=== PATIENT | female | born 1965 | race Caucasian/White ===

== ENCOUNTER 2017-05-05 06:12 | Day surgery (SDC) | payer BC ==
[2017-05-05] MEDS ORDERED: Sodium Chloride 0.9% 10 ML FLUSH Syringe PORT FLUSH PRN (06:20)
[2017-05-05] MEDS ORDERED: Lactated Ringers 1,000 ML IV SCH (06:30)
[2017-05-05 08:34] VITALS: BP 116/72; PULSE 77; O2SAT 96
[2017-05-05] MEDS ORDERED: Versed 2 MG/2 ML Injection IV ONE (10:00)
[2017-05-05] MEDS ORDERED: DIPRIVAN 200 MG/20 ML IV ONE (10:00)
--- NOTE | 2017-05-05 12:27 | OP ---
SURGERY DATE/TIME: 05/05/2017 0658 PREOPERATIVE DIAGNOSIS: History of colon cancer resection 2009. POSTOPERATIVE DIAGNOSIS: Normal colon status post partial resection in the left colon. PROCEDURE: Colonoscopy. SURGEON: Dr. Jurado. ANESTHESIA: MAC. Medications given by anesthesia department. HISTORY: The patient is a 51 year-old white female presenting now for re-investigation status post colon cancer. The patient was reappraised of the risks of the procedure including the risk of perforation, phlebitis, untoward reaction to medication, bleeding, and missed lesions. The patient verbalized her understanding and desired to have the procedure performed. DESCRIPTION OF PROCEDURE: The patient was given the medications by the anesthesia department. She had continuous pulse oximetry, ECG monitoring, intermittent blood pressure monitoring, and tidal CO2 monitoring during the examination. She was placed in the left lateral decubitus position. A digital rectal examination was performed and revealed normal anal sphincter tone and no masses. The flexible Olympus pediatric colonoscope was used to intubate the rectum. A view of the colon was developed sequentially to the cecum where there was noted to be anastomotic site at approximately 20 cm depth insertion. There appeared to be a low lying loop. The rest of the colon was normal sequentially to the cecum. Upon insertion and withdrawal, including a retroflex view in the rectum, no mucosal lesions were otherwise encountered. The scope was removed from the patient who tolerated the procedure well and was sent back to OP recovery in good condition. The prep was noted to be fair to poor.
== END 2017-05-05 08:50 | disposition home or self-care (01) ==
LOC: SDC 06:12
PROVIDERS: ATTEND Family Medicine
PROC: 0DJD8ZZ Inspection of Lower Intestinal Tract, Via Natural or Artificial Opening Endoscopic (ICD-10-PCS; principal; 2017-05-05)
DX: Z85.038 Personal history of other malignant neoplasm of large intestine (principal); Z90.49 Acquired absence of other specified parts of digestive tract
CPT/HCPCS: 00810; J1642; J2250; J2704

== ENCOUNTER 2017-06-23 10:26 | Observation (INO) | payer BC ==
--- NOTE | 2017-06-23 08:08 | HP ---
DATE OF SURGERY: 06/23/2017 HISTORY OF PRESENT ILLNESS: The patient is a 52 year-old with ventral hernia. She has a lower midline incision for sigmoid colon resection in the past. She has a ventral hernia upper aspect. Also she had work up with CT scan that showed some cholelithiasis. I felt she would benefit repair of her symptomatic incarcerated ventral hernia with mesh as well as cholecystectomy possible open. Risks and benefits explained in detail but not limited to bleeding and infection. Risks as explained in initial report. PAST MEDICAL HISTORY: Obesity, hypertension, depression, history of colon cancer. PAST SURGICAL HISTORY: Tubal ligation, bowel resection for some colon cancer in the past, reanastomosis. She has not lost weight since then. She had endoscopy in the past. MEDICATIONS: Klor-Con, meloxicam, Furosemide, losartan, Citalopram, Lyrica and stool softener. ALLERGIES: OXYCODONE, MORPHINE, HYDROCODONE, NUBAIN. FAMILY HISTORY: Diabetes, breast cancer, colon cancer. SOCIAL HISTORY: No smoking or alcohol abuse. REVIEW OF SYSTEMS: Twelve systems reviewed. No chest pain or palpitations pertinent for being overweight and history of colon cancer in the past. Other systems negative or noncontributory as above and per preadmission questionnaire. PHYSICAL EXAMINATION: GENERAL: No acute distress. HEENT: Sclerae nonicteric. NECK: No JVD. CHEST: Equal excursion, nonlabored breathing. CVS: Regular rate and rhythm. ABDOMEN: Soft. She had upper ventral hernia at the top edge of the prior incision. Otherwise no peritoneal signs. Large upper ventral hernia. She has a little bit of splenomegaly and gallstones. She also has small cyst on an ovary. EXTREMITIES: No significant edema. NEURO: Alert, moving extremities symmetrically. No gross motor deficits noted. IMPRESSION: Symptomatic incarcerated ventral hernia. I feel the patient will benefit from repair as well as possible proceed with cholecystectomy. General risks of bleeding or infection, risk of trocar injury or hernia, small risk of bowel, bladder or blood vessel injury, small risk of bile leak, bile duct injury, retained stone or sludge possibly requiring further procedure either open or ERCP, general risk of anesthesia, deep venous thrombosis, pulmonary embolism, pneumonia, perioperative risk of aches, pains, bloating, constipation and or loose stools possibly chronic in nature. She also understands the hernia repair and possibility that she may have some scar tissue and adhesions proceeding laparoscopically and may need to proceed with open repair. She also understands general risk of aches, pains, burning or numbness possible watermelon inspector or chronic in nature, overall risk of hernia recurrence, risk of hematoma or seroma formation, risk of scar tissue, adhesions, or bowel obstruction down the road, risk if the mesh became infected likely would need to be removed, remote risk of mesh fracture or failure possibly creating issues with bowel, viscera or other structures possibly requiring other procedures, ongoing morbidity, general risk of anesthesia, deep venous thrombosis, pulmonary embolism, pneumonia, cardiopulmonary event but not limited to and also longer stay pending pain control. She also understands the importance of weight loss. She understands all the above but not limited to, will proceed with laparoscopic cholecystectomy possible open laparoscopic repair incarcerated ventral hernia with mesh possible open.
[~2017-06-23 10:26] MED LIST: BRIDION 200MG/2ML IV ONE; DIPRIVAN 200 MG/20 ML IV ONE; LIDOCAINE HCL 2% 100 MG/5 ML IJ ONE; Lactated Ringers 1,000 ML IV ONE; Quelicin Fliptop 200 MG/10 ML IJ ONE; Sensorcaine 0.25% 10 ML ONE; Zemuron 100 MG/10 ML IJ ONE; Zofran 4 MG/2 ML VIAL IV ONE
[2017-06-23] MEDS ORDERED: MEFOXIN 2 GM PREMIX** 2 GM/50 ML ML IV ONE (11:21)
[2017-06-23] MEDS ORDERED: Lactated Ringers 1,000 ML IV SCH (11:30)
[2017-06-23] MEDS ORDERED: MEFOXIN 2 GM PREMIX** 2 GM/50 ML ML IV SCH (12:00)
[2017-06-23] MEDS ORDERED: SUBLIMAZE 100 MCG/2 ML ONE (16:25)
[2017-06-23] MEDS ORDERED: Zofran 4 MG/2 ML VIAL ONE (16:36)
[2017-06-23] MEDS ORDERED: TORAdol 30 mg Injection IV PRN (17:24)
[2017-06-23] MEDS ORDERED: Zofran 4 MG/2 ML VIAL IV PRN (17:24)
[2017-06-23] MEDS ORDERED: D5W/0.45NS W/ 20mEq KCl 1000 ML 1,000 ML IV SCH (17:30)
[2017-06-23] MEDS: DILAUDID 1 MG/1ML PCA IV PRN (17:41)
[2017-06-23] MEDS ORDERED: Colace 100 MG PO ONE (22:00)
[2017-06-23] MEDS ORDERED: LASIX 80 MG PO ONE (22:00)
[2017-06-23] MEDS ORDERED: hydroDIURIL 25 MG PO ONE (22:00)
[2017-06-23] MEDS ORDERED: VOLTAREN 50 MG PO SCH (22:00)
[2017-06-23] MEDS ORDERED: Lexapro 10 MG PO ONE (22:00)
[2017-06-23] MEDS ORDERED: Cozaar 50 MG PO ONE (22:00)
[2017-06-23] MEDS: Klor Con 10 MEQ PO SCH (22:02)
[2017-06-23] MEDS: Mirapex 0.5 MG Tablet PO SCH (22:03)
[2017-06-23] MEDS: LYRICA 150MG PO SCH (22:03)
[2017-06-24 04:25] LABS: Bilirubin NEGATIVE (NEGATIVE); Blood NEGATIVE Ery/ul (0-5); COMPLETE URINE MICROSCOPIC? NO; Collection Type CLEAN CATCH; Glucose NEGATIVE (NEGATIVE); Leukocyte Esterase NEGATIVE (NEGATIVE)
[2017-06-24] MEDS ORDERED: Narcan 0.4 MG/ML IV PRN (07:12)
--- NOTE | 2017-06-24 07:57 | OP ---
SURGERY DATE/TIME: 06/23/2017 1210 PREOPERATIVE DIAGNOSES: 1) Symptomatic cholelithiasis. 2) Symptomatic incarcerated ventral incisional hernia. POSTOPERATIVE DIAGNOSES: 1) Symptomatic cholelithiasis. 2) Complex ventral incisional hernia. PROCEDURES: 1) Open repair incarcerated ventral hernia with mesh. 2) Laparoscopic cholecystectomy. SURGEON: Dr. Bryon López. MEDICAL ADMINISTRATIVE TECHNICIAN: Deana Baires, Medical Student III. ANESTHESIA: General. ESTIMATED BLOOD LOSS: Minimal. INDICATIONS: As noted above. Risks and benefits explained in detail but not limited to and consent obtained. DESCRIPTION OF PROCEDURE AND FINDINGS: The patient was taken to the OR. General anesthesia was induced. Had problems with IV initially but it improved. Abdomen was prepped and draped in the usual sterile fashion. After official time out and no disagreement with planned procedure. A transverse incision made in epigastrium. Fascia grasped and pulled upward with towel clips. Veress needle inserted and tested with saline. Pneumoperitoneum accomplished insufflating opening pressure of 0-15. A 5 mm bladeless port and camera were inserted without difficulty followed by additional 5 mm right upper quadrant port and 11 mm epigastric port as well as a 5 mm mid epigastric port. The gallbladder is grasped staying well away from the adhesions up to the ventral incisional hernia that was just inferior to this area. Gallbladder is grasped and retracted over the edge of the liver the fatty infiltrate of liver, dissection carried posterior, lateral to anterior fashion. The cystic artery isolated directly on the gallbladder wall, clipped x3 and divided in usual fashion. The cystic duct and infundibular junction slowly and carefully well skeletonized until a critical view was obtained both anteriorly and posteriorly. Once this was accomplished cystic duct was then clipped x3. Additional clip placed on the cystic duct stump in the usual fashion. The cystic duct divided. Gallbladder slowly and carefully dissected free. It was quite vascular requiring additional clipping, oozing side branch off the cystic artery as well as the LigaSure device directly on the gallbladder wall, small cystic veins and cystic artery branches staying directly on the gallbladder wall. The gallbladder was slowly and carefully dissected free retracting well away from the liver bed. Just prior to releasing from final attachments anterior liver the liver bed re-inspected. Clips noted to be in place in cystic duct and cystic stump. There was no sign of any active bleeding or bile leakage. It was felt there was no benefit from drain placement. The gallbladder released from final attachments anterior to the liver and placed in a Pleatman sac, pulled up in the epigastric wound. Decompressing some bile and a clamp used to crush up the 2.5 to 2.7 cm large stone. Clamps were used to crush it up and pulled in piecemeal finally allowing the gallbladder to be pulled free and passed off. Puncture closure device placed. #1 stay suture with closure device. Otherwise the port was left in place. At this point under direct vision of the camera the left mid, left upper quadrant, left lower quadrant ports were placed under direct vision of the camera. At this point slowly and carefully the LigaSure device, grasper and laparoscopic dilip the adhesions were taken down with some adhesions taken down with the scissors. The omental adhesions were sealed with the LigaSure device if necessary. It should be noted there is no bowel or viscera up in this area this was all omental adhesions staying directly on the gallbladder wall and incarcerated omentum was then reduced down to the hernia sac. A large broad based large hernia and a smaller one off to the right. The area of quite very weak tissue this was all taken down carefully. Good hemostasis. The omentum that had been reduced appeared to be viable at this point. At this point it was felt she would benefit from mesh repair. Because of the extensive weak tissue it was felt that this was best to re-approximate the fascia given the large length of the defect. It was felt that making counter incision directly overlying the area. As she did not have any significant umbilicus left it was felt this redundant skin in this area should be excised allowing the fascia to be closed directly therefore this was excised and passed off. The hernia sac entered. The smaller hernia off to the right abdomen as well as the main fascial defect was closed with running looped 0 PDS in sequential fashion. The mesh had been dropped back down there. Prior to doing all of this the mesh 20 x 15 oval-shaped mesh was felt the most appropriate given she had this lateral hernia off to the right. It was felt that should orient it transversely. The echo balloon mesh was then used. Stay sutures were placed in four quadrants. The mesh was dropped down into the abdomen prior to closing the fascial defect. Visceral protector was also used to keep all of this away from the fascial closure. The fascia closed with running looped 0 PDS. It was felt the bite of fascia that she had the small more attenuated fascia and hernia sac and then closed over the top again with #0 PDS in a tension free manner. Once this was accomplished two layer attenuated fascia repair had been accomplished good hemostasis noted in the subcu. At this point re-insufflated the abdomen pressure around 10 to 12 initially was irrigated out. The mesh balloon tubing was pulled up and connected to syringe, then inflated and clamped to the mesh position transversely. The stay suture then using a spinal needle to pat the location. Stay sutures were then pulled up in four quadrants through separate stab wounds and then tied with 0 Ethibond transfascial sutures. At this point the captured tacker was then used circumferentially around the edges 1 cm or so apart. SorbaFix tacker used closer to the fascial repair with the mesh lying nice and flat as possible. The balloon was removed and passed off intact. The remaining tacks were placed. Again pressure then reduced down 8 to 10 to minimize distention of the abdominal wall. The mesh was lying nice and flat as possible in as good position as possible. Good hemostasis noted. The bowel wall appeared unremarkable. No evidence of issues secondary to port or mesh placement. Gallbladder area also appeared to have good hemostasis. No signs of any active bleeding or bile leakage at this point. The mesh is in good and flat location, nice position. Good overlap in all directions around the open fascia closure. Pneumoperitoneum decompressed. The wound was irrigated out. The midline overlying the true fascial defect is closed with interrupted 3-0 Vicryl closing the deep subcu and superficial subcu. Skin incision closed with 4-0 Vicryl in subcuticular fashion. The combination of port wounds for the gallbladder, hernia repair as well as transfascial stab wounds were closed with the 4-0 Vicryl. Steri-Strips and sterile dressing applied. The patient tolerated the procedure well. There were no immediate complications. Findings discussed with the family out in the waiting area. It is real important that she lose weight group home to reduce the overall chance of recurrence. Admitted for pain control and home when better on all pain medications.
[2017-06-24] MEDS ORDERED: Sodium Chloride 0.9% 500 ML 500 ML IV SCH (08:15)
[2017-06-24] MEDS ORDERED: NON-FORMULARY ITEM (Docusate Sodium [Stool Softener] 50 MG) PO SCH (10:00)
[2017-06-24] MEDS ORDERED: DICLOFENAC SODIUM PO SCH (10:00)
[2017-06-24] MEDS ORDERED: HYDROCHLOROTHIAZIDE PO SCH (10:00)
[2017-06-24] MEDS ORDERED: MISOPROSTOL PO SCH (10:00)
[2017-06-24] MEDS ORDERED: LOSARTAN PO SCH (10:00)
[2017-06-24] MEDS ORDERED: LASIX 20 MG PO SCH (10:00)
[2017-06-24] MEDS: Klor Con 10 MEQ PO SCH ×2 (10:34→21:00)
[2017-06-24] MEDS: ENOXAPARIN SODIUM SQ SCH (10:34)
[2017-06-24] MEDS: LASIX 80 MG PO SCH (10:34)
[2017-06-24] MEDS: Cozaar 50 MG PO SCH (10:34)
[2017-06-24] MEDS: Lexapro 10 MG PO SCH (10:35)
[2017-06-24] MEDS: ARTHROTEC PO SCH ×2 (10:35→21:00)
[2017-06-24] MEDS: Colace 100 MG PO SCH (10:35)
[2017-06-24] MEDS: hydroDIURIL 25 MG PO SCH (10:35)
[2017-06-24] MEDS ORDERED: PHARMACY DOSING REQUEST MC ONE (10:50)
[2017-06-24] MEDS ORDERED: DILAUDID 2 MG INJECTION IV PRN (10:56)
[2017-06-24] MEDS: DILAUDID 1 MG/1ML PCA IV PRN (11:30)
[2017-06-24] MEDS: ULTRAM 50 MG PO PRN ×2 (12:53→22:12)
--- NOTE | 2017-06-24 14:23 | PCM.NOTE ---
Date and Time: 06/24/17729 I was asked by Dr. López to consult for medical mgmt of this patient who is post op day 1 of incarcerated hernia repair and cholecystectomy she was unable to get post op pain controlled and was drowsy and using oxygen and was kept in observation overnight. She is still complaining of severe abdominal pain and has not tried to get out of the bed yet. She has drank water without vomiting or nausea. She denies other complaints currently. - Review of Systems Constitutional: No Fever, No Chills Eyes: No Symptoms Ears, Nose, & Throat: No Symptoms Respiratory: No Cough, No Short Of Breath Cardiac: Edema, No Chest Pain, No Syncope Abdominal/Gastrointestinal: Nausea, No Abdominal Pain, No Vomiting, No Diarrhea Genitourinary Symptoms: No Dysuria Musculoskeletal: No Back Pain, No Neck Pain Skin: No Rash Neurological: No Dizziness, No Focal Weakness, No Sensory Changes Psychological: No Symptoms Endocrine: No Symptoms Hematologic/Lymphatic: No Symptoms Immunological/Allergic: No Symptoms Objective Exam General Appearance: no apparent distress, alert, obese Neurologic Exam: alert, oriented x 3, cooperative, normal mood/affect, nml cerebellar function, sensation nml, No motor deficits Skin Exam: normal color, warm, dry Eye Exam: PERRL, EOMI, eyes nml inspection Ears, Nose, Throat Exam: normal ENT inspection, pharynx normal, moist mucous membranes Neck Exam: normal inspection, non-tender, supple, full range of motion Respiratory Exam: normal breath sounds, lungs clear, No respiratory distress Cardiovascular Exam: regular rate/rhythm, normal heart sounds, edema Gastrointestinal/Abdomen Exam: soft, No tenderness, No mass Extremity Exam: normal inspection, normal range of motion Back Exam: normal inspection, normal range of motion, No CVA tenderness, No vertebral tenderness Pelvic Exam: deferred Rectal Exam: deferred OBJECTIVE DATA Vital Signs: Vital Signs - 24 hr Temp Pulse Resp BP Pulse Ox 06/24/17 11:15 98.2 F 95 H 20 126/58 95 06/24/17 08:16 102 H 18 97 06/24/17 07:08 98.4 F 96 H 22 120/55 96 06/24/17 04:00 98.4 F 98 H 25 H 121/63 95 06/24/17 00:00 98.7 F 93 H 22 133/77 96 06/23/17 19:55 89 12 94 L 06/23/17 19:32 98.7 F 91 H 17 124/66 95 06/23/17 19:25 98.1 F 89 16 124/66 94 L 06/23/17 18:25 86 16 127/69 94 L 06/23/17 17:57 98.6 F 84 18 121/70 93 L 06/23/17 17:47 97 06/23/17 17:41 95 06/23/17 17:39 98.4 F 86 18 123/68 95 06/23/17 17:36 98.4 F 86 22 123/68 95 06/23/17 17:24 97.9 F 83 17 134/72 95 Oxygen-Last 24 hours O2 Percentage 3 Liters = 32% O2 Percentage 3 Liters = 32% O2 Percentage 4 Liters = 36% O2 Percentage 4 Liters = 36% O2 Percentage 3 Liters = 32% O2 Percentage 3 Liters = 32% O2 Percentage 3 Liters = 32% O2 Percentage 3 Liters = 32% O2 Percentage 3 Liters = 32% O2 Percentage 3 Liters = 32% Pain Assessment - Last Documented Pain Intensity [left knee] 3 Pain Intensity 8 Pain Scale Used 0-10 Pain Scale Intake and Output: Intake & Output 06/22/17 06/23/17 06/24/17 06/25/17 11:59 11:59 11:59 11:59 Intake Total 1744 720 Output Total 525 Balance 1219 720 Weight 165.561 kg 165.561 kg Lab Results: Lab Results-Last 24 Hours 06/24/17 Range/Units 04:00 Ur Collection Type CLEAN CATCH Urine Color YELLOW (YELLOW) Urine Appearance CLEAR (CLEAR) Urine pH 5.0 (5-6) Ur Specific [place] 1.020 (1.005-1.025) Urine Protein NEGATIVE (Negative) Urine Ketones NEGATIVE (NEGATIVE) Urine Blood NEGATIVE (0-5) Edmund/ul Urine Nitrite NEGATIVE (NEGATIVE) Urine Bilirubin NEGATIVE (NEGATIVE) Urine Urobilinogen NORMAL (0-1) mg/dL Ur Leukocyte Esterase NEGATIVE (NEGATIVE) Urine Glucose NEGATIVE (NEGATIVE) mg/dL Specimen Received 06/24/17:0400 Assessment/Plan (1) S/P cholecystectomy Current Visit: Yes Status: Acute Assessment & Plan: post op day 1 s/p cholecystectomy and hernia repair diet to be advanced per surgery and pain control encouraged up out of bed will d/c the duplicate nsaid therapy now will d/c iv fluids with the edema continue her chronic lasix check labs if will be staying over night again Code(s): Z90.49 - ACQUIRED ABSENCE OF OTHER SPECIFIED PARTS OF DIGESTIVE TRACT (2) Obesity Current Visit: Yes Status: Chronic Code(s): E66.9 - OBESITY, UNSPECIFIED (3) Essential hypertension Current Visit: Yes Status: Chronic Code(s): I10 - ESSENTIAL (PRIMARY) HYPERTENSION (4) Chronic osteoarthritis Current Visit: Yes Status: Chronic Code(s): M19.90 - UNSPECIFIED OSTEOARTHRITIS, UNSPECIFIED SITE
[2017-06-24 16:50] LABS: BASOPHIL % 0.4 % (0.0-0.4); Granulocytes % 78.8 % (36.0-66.0); Lymphocytes % 10.5 % (24.0-44.0); Mean Cell Volume 94.9 fl (78-100); Mean Corpuscular Hemoglobin 28.8 pg (26-32); Monocytes % 8.3 % (0.0-12.0); Platelet Count 274 K/mm3 (150-450); Red Blood Count 3.54 M/mm3 (4.1-5.4); Red Cell Distribution Width 14.3 % (11.5-14.0)
[2017-06-24 17:05] LABS: ALBUMIN 3.2 g/dL (3.4-5.0); ALKALINE PHOSPHATASE 38 U/L (46-116); ANION GAP 10.4 MEQ/L (5-15); BLOOD UREA NITROGEN 11 mg/dL (9-20); CHLORIDE 102 mEq/L (98-107); Carbon Dioxide 29.5 mEq/L (21-32); Glucose 107 MG/DL (70-110); Potassium 3.7 mEq/L (3.5-5.1); SGOT/AST 21 U/L (15-37); SGPT/ALT 26 U/L (12-78); SODIUM 138 mEq/L (136-145); Total Protein 6.5 gm/dL (6.4-8.2)
[2017-06-24] MEDS: LYRICA 150MG PO SCH (21:00)
[2017-06-24] MEDS: Mirapex 0.5 MG Tablet PO SCH (21:00)
[2017-06-25] MEDS: ULTRAM 50 MG PO PRN ×2 (07:27→15:25)
[2017-06-25] MEDS ORDERED: Senokot-S Tablet PO PRN (08:31)
--- NOTE | 2017-06-25 08:34 | PCM.NOTE ---
Date and Time: 06/25/17832 Subjective Assessment: she is in less pain today she was not able to urinate on he rown yet since surgery she had urge this am and could not go and straight cath had 1500 cc. she has had limited ambulation thus far as well due to the pain no vomiting tolerating po no bowel movement is passing gas Objective Exam General Appearance: obese Neurologic Exam: alert, oriented x 3, cooperative Skin Exam: warm, dry, No rash Eye Exam: No scleral icterus Ears, Nose, Throat Exam: moist mucous membranes Neck Exam: non-tender, supple Respiratory Exam: normal breath sounds, lungs clear Cardiovascular Exam: regular rate/rhythm, normal heart sounds, edema (hands and feet) Gastrointestinal/Abdomen Exam: soft, normal bowel sounds, tenderness Extremity Exam: pedal edema OBJECTIVE DATA Vital Signs: Vital Signs - 24 hr Temp Pulse Resp BP Pulse Ox 06/25/17 08:00 20 06/25/17 07:53 76 18 94 L 06/25/17 07:39 98 F 75 20 115/57 93 L 06/25/17 04:00 98.0 F 75 18 92/45 91 L 06/25/17 00:00 98.5 F 75 17 93/55 95 06/24/17 21:20 74 15 93 L 06/24/17 20:00 98.5 F 77 16 118/67 94 L 06/24/17 16:00 98 F 78 20 101/50 96 06/24/17 11:15 98.2 F 95 H 20 126/58 95 Oxygen-Last 24 hours O2 Percentage 3 Liters = 32% O2 Percentage 3 Liters = 32% O2 Percentage 3 Liters = 32% O2 Percentage 3 Liters = 32% O2 Percentage 3 Liters = 32% Pain Assessment - Last Documented Pain Intensity [left knee] 3 Pain Intensity 5 Pain Scale Used 0-10 Pain Scale Intake and Output: Intake & Output 06/22/17 06/23/17 06/24/17 06/25/17 11:59 11:59 11:59 11:59 Intake Total 1747 2520 Output Total 525 2325 Balance 1219 195 Weight 165.561 kg 165.561 kg Lab Results: Lab Results-Last 24 Hours 06/24/17 06/24/17 Range/Units 16:25 16:25 WBC 10.0 (4.0-10.5) K/mm3 RBC 3.54 L (4.1-5.4) M/mm3 Hgb 10.2 L (12.0-16.0) gm/dl Hct 33.6 L (35-47) % MCV 94.9 (78-100) fl MCH 28.8 (26-32) pg MCHC 30.4 L (32-36) g/dl RDW 14.3 H (11.5-14.0) % Plt Count 274 (150-450) K/mm3 MPV 10.0 H (6-9.5) fl Gran % 78.8 H (36.0-66.0) % Lymphocytes % 10.5 L (24.0-44.0) % Monocytes % 8.3 (0.0-12.0) % Eosinophils % 2.0 (0.00-5.0) % Basophils % 0.4 (0.0-0.4) % Basophils # 0.04 (0-0.4) Sodium 138 (136-145) mEq/L Potassium 3.7 (3.5-5.1) mEq/L Chloride 102 (98-107) mEq/L Carbon Dioxide 29.5 (21-32) mEq/L Anion Gap 10.4 (5-15) MEQ/L BUN 11 (9-20) mg/dL Creatinine 0.91 (0.55-1.30) mg/dl Estimated GFR > 60 ML/MIN Glucose 107 (70-110) MG/DL Calcium 8.5 (8.5-10.1) mg/dL Total Bilirubin 0.60 (0.2-1.0) mg/dL AST 21 (15-37) U/L ALT 26 (12-78) U/L Alkaline Phosphatase 38 L (46-116) U/L Serum Total Protein 6.5 (6.4-8.2) gm/dL Albumin 3.2 L (3.4-5.0) g/dL Assessment/Plan (1) Postoperative urinary retention Current Visit: Yes Status: Acute Assessment & Plan: will encourage ambulation she is off the pain medicine now try rectal suppository for her bowel movements if not urinating by noon we discussed anchor Elizabeth and urology f/u if begins urinating on her own and ambulating she is ok to discharge from our standpoint. Code(s): N99.89 - OTH POSTPROCEDURAL COMPLICATIONS AND DISORDERS OF SYS; R33.8 - OTHER RETENTION OF URINE (2) S/P cholecystectomy Current Visit: Yes Status: Acute Code(s): Z90.49 - ACQUIRED ABSENCE OF OTHER SPECIFIED PARTS OF DIGESTIVE TRACT (3) Obesity Current Visit: Yes Status: Chronic Code(s): E66.9 - OBESITY, UNSPECIFIED (4) Essential hypertension Current Visit: Yes Status: Chronic Code(s): I10 - ESSENTIAL (PRIMARY) HYPERTENSION (5) Chronic osteoarthritis Current Visit: Yes Status: Chronic Code(s): M19.90 - UNSPECIFIED OSTEOARTHRITIS, UNSPECIFIED SITE
[2017-06-25] MEDS ORDERED: Dulcolax 10 MG SUPP PR ONE (08:45)
[2017-06-25] MEDS: LASIX 80 MG PO SCH (08:53)
[2017-06-25] MEDS: Klor Con 10 MEQ PO SCH (08:53)
[2017-06-25] MEDS: Cozaar 50 MG PO SCH (08:53)
[2017-06-25] MEDS: Lexapro 10 MG PO SCH (08:53)
[2017-06-25] MEDS: Colace 100 MG PO SCH (08:54)
[2017-06-25] MEDS: ENOXAPARIN SODIUM SQ SCH (08:54)
[2017-06-25] MEDS: hydroDIURIL 25 MG PO SCH (08:54)
[2017-06-25] MEDS: ARTHROTEC PO SCH (08:55)
--- NOTE | 2017-06-25 16:55 | PCM.DCORD ---
- Discharge Discharge Date: 06/25/17 Disposition: Home, Self-Care Condition: Stable Prescriptions: New Tramadol HCl 50 mg [Ultram 50 mg] 0 mg PO Q6H PRN PRN tablet PRN Reason: Pain Continue Losartan/Hydrochlorothiazide [Hyzaar 100-25 Tablet] 1 each PO DAILY Pregabalin 50 mg [Lyrica 50MG] 150 mg PO HS Potassium Chloride 10 meq PO BID Furosemide [Lasix] 80 mg PO DAILY Pramipexole Di-HCl [Pramipexole Dihydrochloride] 1.5 mg PO HS Escitalopram Oxalate 10 mg [Lexapro 10 MG] 10 mg PO DAILY Docusate Sodium [Stool Softener] 50 mg PO BID Diclofenac Sodium/Misoprostol [Arthrotec 75 mg-200 Mcg Tab] 1 each PO BID Follow up with: TASHA PEARL [ACTIVE STAFF] - 07/03/17 3:15 pm YINA EDUARDO [COURTESY STAFF] - 07/02/17 9:55 am (at [place] office) TRAVIS MALIK [Primary Care Provider] - 1 Week Forms: Patient Portal Information
[2017-06-25 20:05] VITALS: BP 111/55; PULSE 83; O2SAT 94
[2017-06-25] MEDS ORDERED: Versed 2 MG/2 ML Injection IV ONE (20:54)
[2017-06-25] MEDS ORDERED: SUBLIMAZE 250 MCG/5 ML IJ ONE (20:54)
[2017-06-25] MEDS ORDERED: DILAUDID 2 MG INJECTION IV ONE (20:54)
== END 2017-06-25 20:55 | disposition home or self-care (01) ==
LOC: MED SURG 10:26 → EDSTATUS 11:23
PROVIDERS: ADMIT Surgery; ATTEND Surgery
PROC: 0WUF0JZ Supplement Abdominal Wall with Synthetic Substitute, Open Approach (ICD-10-PCS; principal; 2017-06-23)
PROC: 0FT44ZZ Resection of Gallbladder, Percutaneous Endoscopic Approach (ICD-10-PCS; 2017-06-23)
DX: K80.20 Calculus of gallbladder without cholecystitis without obstruction (principal); K43.0 Incisional hernia with obstruction, without gangrene; N99.89 Other postprocedural complications and disorders of genitourinary system; Z90.49 Acquired absence of other specified parts of digestive tract; E66.9 Obesity, unspecified; I10 Essential (primary) hypertension; M19.90 Unspecified osteoarthritis, unspecified site; Z85.038 Personal history of other malignant neoplasm of large intestine
CPT/HCPCS: 00790; 00832; 36415; 80053; 81002; 85025; 88304; 94760; 94762; G0378; J0330; J0694; J1170; J1650; J2250; J2405; J2704; J3010; L0625; A9270-GY

== ENCOUNTER 2017-11-24 09:05 | Day surgery (SDC) | payer BC ==
--- NOTE | 2017-11-24 07:50 | HP ---
DATE OF SURGERY: 11/24/2017 HISTORY OF PRESENT ILLNESS: The patient is a 52 year-old no longer using a Port-A-Cath and desires port removal at this point. PAST MEDICAL HISTORY: Hypertension, colon cancer. PAST SURGICAL HISTORY: Tubal repaired in the past. Colon cancer and resection in sigmoid colon in the past. She had colonoscopies in the past. Cholecystectomy in the past. MEDICATIONS: Klor-Con, meloxicam, Furosemide, losartan hydrochlorothiazide, pramipexole, escitalopram, Lyrica, stool softener. ALLERGIES: OXYCODONE, MORPHINE, HYDROCODONE, NUBAIN. FAMILY HISTORY: Diabetes, breast cancer, colon cancer. SOCIAL HISTORY: She denies smoking or alcohol abuse. REVIEW OF SYSTEMS: Twelve systems reviewed per admission assessment. No chest pain or palpitations other systems negative or noncontributory as above and per preadmission questionnaire. She voluntarily lost 25 pounds. PHYSICAL EXAMINATION: GENERAL: No acute distress. HEENT: Sclerae nonicteric. NECK: No JVD. CHEST: Equal excursion, nonlabored breathing. CVS: Regular rate and rhythm. ABDOMEN: Soft. She had prior hernia repair. No gross recurrence currently. EXTREMITIES: No significant edema. NEURO: Alert, oriented, moving extremities symmetrically. No gross motor deficits noted. IMPRESSION: Past history of Port-A-Cath no longer using for colon cancer. No longer using the port and desires removal. I feel she is a candidate. Risks and benefits explained in detail including but not limited to bleeding or infection, small risk of hematoma or seroma formation, small risk of catheter or port fracture or failure or possibility that the catheter may be too scarred in to be removed and may need to be tied off at the site. Genera risk of aches, pains, risk of anesthesia or sedation but not limited to. She understands and agrees to the planned procedure. We will proceed with removal of Port-A-Cath as an outpatient.
[2017-11-24] MEDS ORDERED: Ketamine HCl 50 MG/ML IV ONE (09:06)
[2017-11-24] MEDS ORDERED: DIPRIVAN 200 MG/20 ML IV ONE (09:06)
[2017-11-24] MEDS ORDERED: XYLOCAINE 1% HCL 20 ML MDV ONE (09:16)
[2017-11-24] MEDS ORDERED: Lactated Ringers 1,000 ML IV ONE ×2 (09:16→09:47)
[2017-11-24] MEDS ORDERED: Lactated Ringers 1,000 ML IV SCH (10:00)
[2017-11-24] MEDS ORDERED: KEFZOL 1 GM ONE (10:45)
[2017-11-24 12:33] VITALS: O2SAT 96
[2017-11-24 12:53] VITALS: BP 127/83; PULSE 67
--- NOTE | 2017-11-25 10:50 | OP ---
SURGERY DATE/TIME: 11/24/2017 1104 PREOPERATIVE DIAGNOSIS: History of colon cancer no longer using Port-A-Cath. POSTOPERATIVE DIAGNOSIS: History of colon cancer no longer using Port-A-Cath. PROCEDURE: Removal of tunnel Port-A-Cath. SURGEON: Dr. Bryon López. ANESTHESIA: MAC. ESTIMATED BLOOD LOSS: Minimal. INDICATIONS: As noted above. Risks and benefits explained in detail and not limited to and consent obtained. DESCRIPTION OF PROCEDURE AND FINDINGS: The patient is taken to the operating room. MAC anesthesia introduced. After official time out and no disagreement with planned procedure, prepped and draped in usual sterile fashion. 1% lidocaine local infiltrated in field pattern around the port area. The port seems to be a little lower than the old incision. An incision made directly overlying the Port-A-Cath. Dissection carried down to the port that was resected able to be pulled free and passed off. Tunnel track closed with 3-0 Vicryl. Fibrous pocket closed with 3-0 Vicryl. Subcu closed with 3-0 Vicryl. Skin closed with 4-0 Vicryl. Steri-Strips and sterile dressing applied. The patient tolerated the procedure well. There were no immediate complications. She was transferred to the recovery room in stable condition. There was no family available to discuss the findings with at this time.
== END 2017-11-24 14:05 | disposition home or self-care (01) ==
LOC: SDC 09:05
PROVIDERS: ATTEND Surgery
PROC: 0JPT0XZ Removal of Tunneled Vascular Access Device from Trunk Subcutaneous Tissue and Fascia, Open Approach (ICD-10-PCS; principal; 2017-11-24)
DX: Z45.2 Encounter for adjustment and management of vascular access device (principal); Z85.038 Personal history of other malignant neoplasm of large intestine; I10 Essential (primary) hypertension
CPT/HCPCS: 00400; J0690; J2704

== ENCOUNTER 2020-04-11 05:50 | Day surgery (SDC) | payer BC ==
[2020-04-11] MEDS ORDERED: Lactated Ringers 1,000 ML IV SCH (06:30)
[2020-04-11 06:35] VITALS: O2SAT 93
[2020-04-11] MEDS ORDERED: DIPRIVAN 200 MG/20 ML IV ONE (07:38)
[2020-04-11] MEDS ORDERED: Ketamine HCl 50 MG/ML ONE (07:40)
[2020-04-11 09:25] VITALS: BP 143/87; PULSE 80
--- NOTE | 2020-04-11 09:40 | OP ---
SURGERY DATE/TIME: 03/11/2020 0800 PREOPERATIVE DIAGNOSIS: History of colon cancer and partial left colectomy. POSTOPERATIVE DIAGNOSIS: Normal colon status post partial resection. PROCEDURE: Colonoscopy. SURGEON: Dr. Jurado. ANESTHESIA: MAC. Medications given by anesthesia department. HISTORY: The patient is a 54 year old white female presenting now for colonoscopic evaluation. She reports she has a history of colon cancer and has had a partial colectomy approximately ten years ago. The patient is here now for repeat evaluation. She was appraised of the risks of the procedure including the risk of perforation, phlebitis, untoward reaction to medication, bleeding and missed lesions. The patient verbalized her understanding and desired to have the procedure performed. DESCRIPTION OF PROCEDURE: The patient was given the medications by the anesthesia department. She had continuous pulse oximetry, ECG monitoring, intermittent blood pressure monitoring and tidal CO2 monitoring during the examination. She was placed in the left lateral decubitus position. A digital rectal examination was performed and revealed normal anal sphincter tone and no masses. The flexible Olympus pediatric colonoscope was used to intubate the rectum. A view of the colon was developed. There was noted to be an anastomotic site which appeared to be free of any lesions. The scope was easily able to be pushed to the cecum which upon insertion and withdrawal appeared to be free of any lesions in the colon. The scope was removed from the patient who tolerated the procedure well and was sent back to OP recovery in good condition. The prep was noted to be fair to good.
== END 2020-04-11 09:20 | disposition home or self-care (01) ==
LOC: SDC 05:50
PROVIDERS: ATTEND Family Medicine
DX: Z08 Encounter for follow-up examination after completed treatment for malignant neoplasm (principal); Z85.038 Personal history of other malignant neoplasm of large intestine; Z90.49 Acquired absence of other specified parts of digestive tract
CPT/HCPCS: J2704

== ENCOUNTER 2023-09-19 00:08 | Emergency (ER) | payer OTHER ==
--- NOTE | 2023-09-19 00:20 | ERPHSYRPT ---
- History of Present Illness Time Seen by Provider: 09/19/23 00:20 Historian: patient Exam Limitations: no limitations Physician History: This is a morbidly obese 58-year-old white female patient of Dr. Og and transmitter engineer in charge Dr. Mendoza. This patient presents with substernal, central chest pain that is localized and nonradiating. It started at noon today and became more frequent as the day went on. Patient stated that she did take aspirin earlier today. Patient does state that before the chest pain began she has had several day history of left-sided neck pain without history of an injury. Recently, the patient had a 3-day Holter monitor in place and, according to the patient, the patient had findings of tachycardia. Patient was recently seen by the transmitter engineer in charge. She has never had any documented coronary artery disease but she does have a cardiac catheterization planned for next week. Patient does not smoke or chew tobacco. She has no history of hyperlipidemia. Patient has a history of hypertension, migraine headaches, peripheral neuropathy, depression and fibromyalgia. She denies cough. She denies fever. She has had no abdominal pain. She has no nausea, vomiting or diarrhea symptoms. Timing/Duration: today Quality: pressure, tightness Location: substernal, central Chest Pain Radiation: no radiation Severity of Pain-Max: mild (To moderate) Severity of Pain-Current: mild Associated Symptoms: denies symptoms Prior Chest Pain/Cardiac Workup: no prior cardiac workup (In the process. Cardiac catheterization scheduled next week) Nitro Today/Relief: no nitro taken today Aspirin Treatment Today: provided at home Allergies/Adverse Reactions: codeine Allergy (Intermediate, Verified 09/19/23 00:21) tachycardia hydrocodone [Hydrocodone] Allergy (Intermediate, Verified 09/19/23 00:21) tachycardia morphine Allergy (Intermediate, Verified 09/19/23 00:21) tachycardia nalbuphine HCl [From Nubain] Allergy (Intermediate, Verified 09/19/23 00:21) Rash oxycodone [Oxycodone] Allergy (Intermediate, Verified 09/19/23 00:21) tachycardia Home Medications: Potassium Chloride 10 meq PO DAILY 04/28/17 [History] Gabapentin 3 tab PO HS 04/04/20 [History] Losartan Potassium 100 mg PO DAILY 04/04/20 [History] Bumetanide 1 mg [Bumex 1 mg] 1 mg PO DAILY 09/19/23 [History] Desvenlafaxine Succinate [Pristiq ER] 100 mg PO DAILY 09/19/23 [History] Meloxicam 7.5 mg PO DAILY 09/19/23 [History] Triamcinolone 0.1% Cream [Kenalog 0.1% Cream 15 gm] 15 gm TP DAILY 09/19/23 [History] Hx Tetanus, Diphtheria Vaccination/Date Given: No Hx Influenza Vaccination/Date Given: No Hx Pneumococcal Vaccination/Date Given: No Travel Risk - International Travel Have you traveled outside of the country in past 3 weeks: No - Coronavirus Screening Are you exhibiting any of the following symptoms?: No Close contact with a COVID-19 positive Pt in past 14-21 Days: No - Review of Systems Constitutional: No Symptoms Eyes: No Symptoms Ears, Nose, & Throat: No Symptoms Respiratory: No Symptoms Cardiac: Chest Pain, Palpitations Abdominal/Gastrointestinal: No Symptoms Genitourinary Symptoms: No Symptoms Musculoskeletal: No Symptoms Skin: No Symptoms Neurological: No Symptoms Psychological: No Symptoms Endocrine: No Symptoms Hematologic/Lymphatic: No Symptoms Immunological/Allergic: No Symptoms All Other Systems: Reviewed and Negative - Past Medical History Pertinent Past Medical History: Yes Neurological History: Migraines, Peripheral Neuropathy ENT History: No Pertinent History Cardiac History: Hypertension Respiratory History: No Pertinent History Endocrine Medical History: No Pertinent History Musculoskeletal History: No Pertinent History GI Medical History: Colorectal Cancer, Gallbladder Disease, Hernia History: No Pertinent History Psycho-Social History: Depression Female Reproductive Disorders: No Pertinent History Other Medical History: Snores excessively at night. reports that she fernanda "snort" when she sleeps. - Past Surgical History Past Surgical History: Yes Neuro Surgical History: No Pertinent History Cardiac: No Pertinent History Respiratory: No Pertinent History Gastrointestinal: Cholecystectomy, Colon Resection, Hernia Repair Genitourinary: No Pertinent History Musculoskeletal: No Pertinent History Female Surgical History: Dilation & Curettage, Tubal Ligation, Other Other Surgical History: 2 - d and c's. port placement left chest and port removed. - Social History Smoking Status: Never smoker Exposure to second hand smoke: No Drug Use: none - Nursing Vital Signs Nursing Vital Signs: Initial Vital Signs Pulse Rate 78 09/19/23 00:30 Respiratory Rate 15 09/19/23 00:30 Blood Pressure 130/75 09/19/23 00:30 O2 Sat by Pulse Oximetry 95 09/19/23 00:30 Pain Scale Pain Intensity 0 - Physical Exam General Appearance: no apparent distress, alert, anxiety, obese Eye Exam: PERRL/EOMI, eyes nml inspection Ears, Nose, Throat Exam: normal ENT inspection Neck Exam: normal inspection, non-tender, supple, full range of motion Respiratory Exam: normal breath sounds, chest tenderness, lungs clear, airway intact, No respiratory distress Cardiovascular Exam: regular rate/rhythm, normal heart sounds, normal peripheral pulses Gastrointestinal/Abdomen Exam: soft, normal bowel sounds, No tenderness Pelvic Exam: not done Rectal Exam: not done Back Exam: normal inspection, normal range of motion, No CVA tenderness, No vertebral tenderness Extremity Exam: normal inspection, normal range of motion, pelvis stable Neurologic Exam: alert, oriented x 3, cooperative, flame hardening machine setter II-XII nml as tested, normal mood/affect, nml cerebellar function, nml station & gait, sensation nml Skin Exam: normal color, warm, dry Lymphatic Exam: No adenopathy SpO2 Interpretation: normal O2 Delivery: Room Air - Course Nursing assessment & vital signs reviewed: Yes EKG Interpreted by Me: RATE ([id number]), Sinus Rhythm, NORMAL AXIS, NORMAL INTERVALS, NORMAL QRS, NORMAL ST-T, Other (There is no evidence of acute ischemic changes on today's twelve-lead EKG.) Ordered Tests: Active Orders 24 hr Category Date Time Status EKG-ER Only STAT Care 09/19/23 00:27 Active EKG-ER Only STAT Care 09/19/23 03:48 Active IV Insertion STAT Care 09/19/23 00:27 Active Pulse Oximetry (ED) STAT Care 09/19/23 00:27 Active CBC W DIFF Stat Lab 09/19/23 00:29 Completed CMP Stat Lab 09/19/23 00:29 Completed D-DIMER QUANTITATIVE Stat Lab 09/19/23 00:29 Completed PROTIME WITH INR Stat Lab 09/19/23 00:29 Completed TROPONIN Q4H Lab 09/19/23 00:29 Completed TROPONIN Q4H Lab 09/19/23 03:31 Completed TROPONIN Q4H Lab 09/19/23 08:30 Ordered Medication Summary Discontinued Medications Generic Name Dose Route Start Last Admin Trade Name Freq PRN Reason Stop Dose Admin Aspirin 324 mg 09/19/23 00:27 09/19/23 00:48 Aspirin 81 Mg Tab.Chew PO 09/19/23 00:28 324 mg STAT ONE Administration Aspirin Confirm 09/19/23 00:48 Aspirin 81 Mg Tab.Chew Administered 09/19/23 00:49 Dose 324 mg .ROUTE .STK-MED ONE Lab/Rad Data: Laboratory Result Diagrams 09/19/23 00:29 09/19/23 00:29 Laboratory Results 09/19/23 09/19/23 09/19/23 Range/Units 03:31 00:29 00:29 WBC (4.0-10.5) x10^3/uL RBC (4.1-5.4) x10^6/uL Hgb (12.0-16.0) g/dL Hct (35-47) % MCV (78-100) fL MCH (26-32) pg MCHC (32-36) g/dL RDW (11.5-14.0) % Plt Count (150-450) x10^3/uL MPV (7.5-11.0) fL Gran % (36.0-66.0) % Immature Gran % (Auto) (0.00-0.4) % Nucleat RBC Rel Count (0.00-0.1) % Eos # (Auto) (0-0.5) x10^3/uL Immature Gran # (Auto) (0.00-0.03) x10^3u/L Absolute Lymphs (auto) (1.0-4.6) x10^3/uL Absolute Monos (auto) (0.0-1.3) x10^3/uL Absolute Nucleated RBC (0.00-0.01) x10^3u/L Lymphocytes % (24.0-44.0) % Monocytes % (0.0-12.0) % Eosinophils % (0.00-5.0) % Basophils % (0.0-0.4) % Absolute Granulocytes (1.4-6.9) x10^3/uL Basophils # (0-0.4) x10^3/uL PT 10.3 (9.4-12.5) SECONDS INR 0.94 (0.8-3.0) D-Dimer < 0.19 (0.0-0.50) mg/L Sodium (137-145) mmol/L Potassium (3.5-5.1) mmol/L Chloride (98-107) mmol/L Carbon Dioxide (22-30) mmol/L Anion Gap (5-15) MEQ/L BUN (7-17) mg/dL Creatinine (0.52-1.04) mg/dL Estimated GFR ML/MIN Glucose (74-106) mg/dL Calcium (8.4-10.2) mg/dL Total Bilirubin (0.2-1.3) mg/dL AST (14-36) U/L ALT (0-35) U/L Alkaline Phosphatase (38-126) U/L Troponin I < 0.012 < 0.012 (0.000-0.034) ng/mL Serum Total Protein (6.3-8.2) g/dL Albumin (3.5-5.0) g/dL 09/19/23 09/19/23 Range/Units 00:29 00:29 WBC 9.7 (4.0-10.5) x10^3/uL RBC 4.40 (4.1-5.4) x10^6/uL Hgb 13.8 (12.0-16.0) g/dL Hct 42.7 (35-47) % MCV 97.0 (78-100) fL MCH 31.4 (26-32) pg MCHC 32.3 (32-36) g/dL RDW 12.8 (11.5-14.0) % Plt Count 313 (150-450) x10^3/uL MPV 9.6 (7.5-11.0) fL Gran % 49.6 (36.0-66.0) % Immature Gran % (Auto) 0.5 H (0.00-0.4) % Nucleat RBC Rel Count 0.0 (0.00-0.1) % Eos # (Auto) 0.53 H (0-0.5) x10^3/uL Immature Gran # (Auto) 0.05 H (0.00-0.03) x10^3u/L Absolute Lymphs (auto) 3.27 (1.0-4.6) x10^3/uL Absolute Monos (auto) 0.91 (0.0-1.3) x10^3/uL Absolute Nucleated RBC 0.00 (0.00-0.01) x10^3u/L Lymphocytes % 33.8 (24.0-44.0) % Monocytes % 9.4 (0.0-12.0) % Eosinophils % 5.5 H (0.00-5.0) % Basophils % 1.2 (0.0-0.4) % Absolute Granulocytes 4.80 (1.4-6.9) x10^3/uL Basophils # 0.12 (0-0.4) x10^3/uL PT (9.4-12.5) SECONDS INR (0.8-3.0) D-Dimer (0.0-0.50) mg/L Sodium 136 L (137-145) mmol/L Potassium 4.2 (3.5-5.1) mmol/L Chloride 104 (98-107) mmol/L Carbon Dioxide 25 (22-30) mmol/L Anion Gap 12.0 (5-15) MEQ/L BUN 14 (7-17) mg/dL Creatinine 0.89 (0.52-1.04) mg/dL Estimated GFR 75.6 ML/MIN Glucose 122 H (74-106) mg/dL Calcium 9.2 (8.4-10.2) mg/dL Total Bilirubin 0.50 (0.2-1.3) mg/dL AST 22 (14-36) U/L ALT 18 (0-35) U/L Alkaline Phosphatase 46 (38-126) U/L Troponin I (0.000-0.034) ng/mL Serum Total Protein 7.4 (6.3-8.2) g/dL Albumin 4.4 (3.5-5.0) g/dL - Progress Progress: improved, re-examined Air Movement: good Progress Note: 09/19/23 01:16 This patient's medical issue is 1 of moderate complexity. Level complex in the workup performed is based on review the patient's past medical history, review the patient's medication list, reviewed patient's drug allergy list, history present illness and physical findings on examination. Workup in this patient includes placement of an intravenous line, twelve-lead EKG, D-dimer level, troponin level, CBC, CMP. I reviewed the laboratory data results on this patient. Her D-dimer, troponin level and remainder of her laboratory studies are negative for any acute or emergent findings. We will keep the patient here for 3-hour, repeat troponin level as well as a 3-hour, repeat twelve-lead EKG. 09/19/23 01:28 Reexamination of the patient shows the patient comfortable happy smiling without chest pain. 09/19/23 04:05 The 3-hour, repeat twelve-lead EKG shows a heart rate of 68 and is in normal sinus rhythm without evidence of any acute ischemic changes. There is normal QRS and normal intervals present. Patient's 3-hour, repeat troponin is negative/normal. Patient reexamined she is not short of breath she has no chest pain. She states she is feeling well. Heart score is less than 4 and my suspicion is low for a cardiac event/issue. Blood Culture(s) Obtained: No Antibiotics given: No Counseled pt/family regarding: lab results, diagnosis, need for follow-up Medical Desision Making - Diagnostic Testing Diagnostic test were ordered, analyzed, and reviewed by me: Yes Radiological Interpretation: Reviewed by me, Teleradiologist Report - Risk of complications Low Risk: Low risk of morbidity from additional dx testing or treatment - Departure Departure Disposition: Home Clinical Impression: Nonspecific chest pain Condition: Stable Critical Care Time: No Referrals: SILVESTRE OG MD [Primary Care Provider] - Follow up/PCP as directed Additional Instructions: Continue medication as prescribed. Call your transmitter engineer in charge office later today to make them aware that you had this issue occur today.
[2023-09-19] MEDS ORDERED: BABY ASPIRIN 81 MG CHEW PO ONE (00:27)
[2023-09-19 00:32] LABS: BASOPHIL % 1.2 % (0.0-0.4); Basophil (Absolute #) 0.12 x10^3/uL (0-0.4); Eosinophil % 5.5 % (0.00-5.0); Eosinophil (Absolute #) 0.53 x10^3/uL (0-0.5); Hematocrit 42.7 % (35-47); Hemoglobin 13.8 g/dL (12.0-16.0); IMMATURE GRAN # 0.05 x10^3u/L (0.00-0.03); IMMATURE GRAN % 0.5 % (0.00-0.4); Lymphocyte (Absolute #) 3.27 x10^3/uL (1.0-4.6); Lymphocytes % 33.8 % (24.0-44.0); Mean Corpuscular Hemoglobin 31.4 pg (26-32); Mean Corpuscular Hgb Concent. 32.3 g/dL (32-36); Mean Platelet Volume 9.6 fL (7.5-11.0); Monocyte (Absolute #) 0.91 x10^3/uL (0.0-1.3); Monocytes % 9.4 % (0.0-12.0); Neutrophil % 49.6 % (36.0-66.0); Platelet Count 313 x10^3/uL (150-450); Red Cell Distribution Width 12.8 % (11.5-14.0); White Blood Count 9.7 x10^3/uL (4.0-10.5)
[2023-09-19 00:40] LABS: ALBUMIN 4.4 g/dL (3.5-5.0); BILIRUBIN,TOTAL 0.5 mg/dL (0.2-1.3); Calcium 9.2 mg/dL (8.4-10.2); Creatinine 1 0.89 mg/dL (0.52-1.04); EST GLOMERULAR FILTRATION RATE 75.6 ML/MIN; Potassium 4.2 mmol/L (3.5-5.1); Total Protein 7.4 g/dL (6.3-8.2)
[2023-09-19 00:45] LABS: D-DIMER QUANTITATIVE < 0.19 mg/L (0.0-0.50); INR 0.94 (0.8-3.0); PROTIME 10.3 SECONDS (9.4-12.5)
[2023-09-19 00:47] VITALS: TEMP 98.8
[2023-09-19] MEDS ORDERED: BABY ASPIRIN 81 MG CHEW ONE (00:48)
[2023-09-19 04:02] VITALS: BP 119/84; PULSE 69; RESP 18; O2SAT 93
== END 2023-09-19 04:16 | disposition home or self-care (01) ==
LOC: ED 00:08
DX: R07.89 Other chest pain (principal); I10 Essential (primary) hypertension; Z79.899 Other long term (current) drug therapy
CPT/HCPCS: 36000; 36415; 80053; 84484; 85025; 85379; 85610; 93005; 94760; 99284; A9270-GY

== ENCOUNTER 2024-04-12 18:51 | Emergency (ER) | payer OTHER ==
--- NOTE | 2024-04-12 19:29 | ERPHSYRPT ---
- History of Present Illness Time Seen by Provider: 04/12/24 19:29 Source: patient Exam Limitations: no limitations Physician History: This is a morbidly obese white female patient of Dr. Og who presents with "leaking clear fluid" from the posterior aspect of both of her lower legs. It began approximately 2 days ago when she noticed that her pants and bed sheets we re wet. Patient has been referred to lymphedema clinic but has been unable to secure an appointment at this point. Patient denies chest pain. She denies shortness of breath. Patient has a history of hyperlipidemia, hypertension, migraine headaches, peripheral neuropathy and depression. Method of Injury: other (No injury) Occurred: days ago (Noticed 2 days ago) Severity of Pain-Max: none Severity of Pain-Current: none Lower Extremities Pain: leg: bilateral (Overall the knee posterior) Modifying Factors: Improves With: nothing Associated Symptoms: none Allergies/Adverse Reactions: codeine Allergy (Intermediate, Verified 04/12/24 19:53) tachycardia hydrocodone [Hydrocodone] Allergy (Intermediate, Verified 04/12/24 19:53) tachycardia morphine Allergy (Intermediate, Verified 04/12/24 19:53) tachycardia nalbuphine HCl [From Nubain] Allergy (Intermediate, Verified 04/12/24 19:53) Rash oxycodone [Oxycodone] Allergy (Intermediate, Verified 04/12/24 19:53) tachycardia Home Medications: Potassium Chloride 10 meq PO DAILY 04/28/17 [History] Gabapentin 3 tab PO HS 04/04/20 [History] Losartan Potassium 100 mg PO DAILY 04/04/20 [History] Meloxicam 7.5 mg PO DAILY 09/19/23 [History] Triamcinolone 0.1% Cream [Kenalog 0.1% Cream 15 gm] 15 gm TP DAILY 09/19/23 [History] Atorvastatin Calcium 20 mg PO DAILY 04/12/24 [History] Furosemide 40 mg [Lasix 40 MG] 60 mg PO BID 04/12/24 [History] Metoprolol Succinate 50 mg [Toprol Xl 50 MG] 50 mg PO DAILY 04/12/24 [History] Spironolactone 25 mg [Aldactone 25 MG] 50 mg PO DAILY 04/12/24 [History] Venlafaxine HCl 75 mg PO DAILY 04/12/24 [History] dexAMETHasone [Dexamethasone] 4 mg PO DAILY 04/12/24 [History] Hx Tetanus, Diphtheria Vaccination/Date Given: No Hx Influenza Vaccination/Date Given: No Hx Pneumococcal Vaccination/Date Given: No Travel Risk - International Travel Have you traveled outside of the country in past 3 weeks: No - Emerging Infectious Disease Are you exhibiting symptoms associated with any current EIDs: No - Review of Systems Constitutional: No Symptoms Eyes: No Symptoms Ears, Nose, & Throat: No Symptoms Respiratory: No Symptoms Cardiac: No Symptoms Abdominal/Gastrointestinal: No Symptoms Genitourinary Symptoms: No Symptoms Musculoskeletal: No Symptoms Skin: Other (Lateral lower extremity lymphedema) Neurological: No Symptoms Psychological: No Symptoms Endocrine: No Symptoms Hematologic/Lymphatic: No Symptoms Immunological/Allergic: No Symptoms All Other Systems: Reviewed and Negative - Past Medical History Pertinent Past Medical History: Yes Neurological History: Migraines, Peripheral Neuropathy ENT History: No Pertinent History Cardiac History: Hypertension Respiratory History: No Pertinent History Endocrine Medical History: No Pertinent History Musculoskeletal History: No Pertinent History GI Medical History: Hernia, Gallbladder Disease, Colorectal Cancer History: No Pertinent History Psycho-Social History: Depression Female Reproductive Disorders: No Pertinent History Other Medical History: Snores excessively at night. reports that she fernanda "snort" when she sleeps. - Past Surgical History Past Surgical History: Yes Neuro Surgical History: No Pertinent History Cardiac: No Pertinent History Respiratory: No Pertinent History Gastrointestinal: Colon Resection, Cholecystectomy, Hernia Repair Genitourinary: No Pertinent History Musculoskeletal: No Pertinent History Female Surgical History: Tubal Ligation, Other, Dilation & Curettage Other Surgical History: 2 - d and c's. port placement left chest and port removed. - Social History Smoking Status: Never smoker Exposure to second hand smoke: No Drug Use: none Patient Lives Alone: Yes - Nursing Vital Signs Nursing Vital Signs: Initial Vital Signs Temperature 98.3 F 04/12/24 19:40 Pulse Rate 83 04/12/24 19:40 Respiratory Rate 20 04/12/24 19:40 Blood Pressure 120/79 04/12/24 19:40 O2 Sat by Pulse Oximetry 91 L 04/12/24 19:40 Pain Scale Pain Intensity 0 - Physical Exam General Appearance: no apparent distress, alert, anxiety, obese (Morbid obesity) Eyes, Ears, Nose, Throat Exam: normal ENT inspection, moist mucous membranes Neck Exam: normal inspection, non-tender, supple, full range of motion Cardiovascular/Respiratory Exam: chest non-tender, no respiratory distress Gastrointestinal/Abdominal Exam: non-tender Back Exam: normal inspection, normal range of motion, No CVA tenderness, No vertebral tenderness Hips Exam: bilateral: non-tender, normal inspection, normal range of motion, no evidence of injury Legs Exam: bilateral leg: non-tender, normal range of motion, no evidence of injury, swelling (Bilateral lower extremity lymphedema with no obvious or significant ulcerations. However there is clear liquid serous fluid leaking posteriorly and mild redness present on the medial aspect of her lower legs) Knees Exam: bilateral knee: non-tender, normal inspection, normal range of motion, no evidence of injury Ankle Exam: bilateral ankle: non-tender, normal inspection, normal range of motion, no evidence of injury Foot Exam: bilateral foot: non-tender, normal inspection, normal range of motio n, no evidence of injury Neuro/Tendon Exam: normal sensation, normal motor functions, normal tendon functions, responds to pain, no evidence tendon injury Mental Status Exam: alert, oriented x 3, cooperative Skin Exam: other (Lymphedema serous fluid posterior aspect bilateral lower extremities below the knee. Mild cellulitis in same region.) SpO2 Interpretation: normal O2 Delivery: Room Air - Course Nursing assessment & vital signs reviewed: Yes Ordered Tests: Active Orders 24 hr Category Date Time Status CBC W DIFF Stat Lab 04/12/24 21:00 Completed CMP Stat Lab 04/12/24 21:00 Completed Lactic Acid Stat Lab 04/12/24 20:49 Completed Medication Summary Discontinued Medications Generic Name Dose Route Start Last Admin Trade Name Jose PRN Reason Stop Dose Admin Ceftriaxone Sodium 1,000 mg 04/12/24 21:13 Ceftriaxone Sodium 1000 Mg Inj Vial IM 04/12/24 21:14 STAT ONE Ceftriaxone Sodium Confirm 04/12/24 21:28 Ceftriaxone Sodium 1000 Mg Inj Vial Administered 04/12/24 21:29 Dose 1,000 mg .ROUTE .STK-MED ONE Lidocaine HCl Confirm 04/12/24 21:30 Lidocaine Hcl 1% 20 Ml Mdv 20 Ml Ml Administered 04/12/24 21:31 Dose 3 ml .ROUTE .STK-MED ONE Lab/Rad Data: Laboratory Result Diagrams 04/12/24 21:00 04/12/24 21:00 Laboratory Results 04/12/24 04/12/24 04/12/24 Range/Units 21:00 21:00 20:49 WBC 8.6 (3.98-10.04) x10^3/uL RBC 3.37 L (3.93-5.22) x10^6/uL Hgb 10.6 L (11.2-15.7) g/dL Hct 33.6 L (34.1-44.9) % MCV 99.7 H (79.4-94.8) fL MCH 31.5 (25.6-32.2) pg MCHC 31.5 L (32.2-35.5) g/dL RDW 14.6 H (11.7-14.4) % Plt Count 253 (182-369) x10^3/uL MPV 9.4 (9.4-12.3) fL Gran % 61.9 (34.0-71.1) % Immature Gran % (Auto) 1.9 H (0.001-0.429) % Nucleat RBC Rel Count 0.0 (0.00-0.2) % Eos # (Auto) 0.68 H (0.04-0.36) x10^3/uL Immature Gran # (Auto) 0.16 H (0.001-0.031) x10^3u/L Absolute Lymphs (auto) 1.49 (1.18-3.74) x10^3/uL Absolute Monos (auto) 0.87 H (0.24-0.86) x10^3/uL Absolute Nucleated RBC 0.00 (0.00-0.012) x10^3u/L Lymphocytes % 17.4 L (19.3-51.7) % Monocytes % 10.2 (4.7-12.5) % Eosinophils % 7.9 H (0.7-5.8) % Basophils % 0.7 (0.1-1.2) % Absolute Granulocytes 5.30 (1.56-6.13) x10^3/uL Basophils # 0.06 (0.01-0.08) x10^3/uL Sodium 138 (135-145) mmol/L Potassium 4.1 (3.5-5.1) mmol/L Chloride 100 (98-107) mmol/L Carbon Dioxide 33 H (22-30) mmol/L Anion Gap 9.2 (5-15) MEQ/L BUN 12 (7-17) mg/dL Creatinine 1.03 (0.52-1.04) mg/dL Estimated GFR 63.4 ML/MIN Glucose 113 H (74-106) mg/dL Lactic Acid 1.1 (0.4-2.0) Calcium 9.4 (8.4-10.2) mg/dL Total Bilirubin 0.50 (0.2-1.3) mg/dL AST 21 (14-36) U/L ALT 22 (0-35) U/L Alkaline Phosphatase 44 (38-126) U/L Serum Total Protein 6.0 L (6.3-8.2) g/dL Albumin 3.6 (3.5-5.0) g/dL - Progress Progress: unchanged Progress Note: 04/12/24 21:39 My medical decision making and the assignment of moderate complexity to this patient's medical issue today is based on review of the patient's past medical history, review the patient's medication list, review patient drug allergy list, history present illness and physical findings on examination. The workup in the patient is includes CBC, CMP, lactic acid level. Differential diagnosis includes but not limited to cellulitis, lymphedema. I have low suspicion that this patient has DVTs. This patient has obvious lymphedema without significant ulcerations and mild cellulitis present. Her white count is normal her lactic acid level is normal, her vital signs are stable without tachycardia or fever. Counseled pt/family regarding: lab results, diagnosis, need for follow-up Medical Desision Making - Diagnostic Testing Diagnostic test were ordered, analyzed, and reviewed by me: Yes - Risk of complications The pt has a mod risk of morbidity or mortality based on: Need for prescription drug management - Departure Departure Disposition: Home Clinical Impression: Lymphedema, Cellulitis Condition: Stable Critical Care Time: Yes Critical Care Time(excluding separately billable procedures): Critical 30-74 mins Referrals: SILVESTRE OG MD [Primary Care Provider] - Follow up/PCP as directed Additional Instructions: Keep your bilateral lower extremities elevated above the level of your heart when not ambulating. Take your antibiotics and other medications as prescribed. Call your primary care provider and double bottom driver for further evaluation and management and to be seen in the next 3 to 5 days with possible consultation with a wound care center as well as a different lymphedema clinic/Center to be seen earlier. Prescriptions: Cephalexin Mh 500 mg [Keflex 500 mg] 500 mg PO TID #21 cap
[2024-04-12 19:53] VITALS: TEMP 98.3
[2024-04-12 21:04] LABS: BASOPHIL % 0.7 % (0.1-1.2); Basophil (Absolute #) 0.06 x10^3/uL (0.01-0.08); Eosinophil % 7.9 % (0.7-5.8); Eosinophil (Absolute #) 0.68 x10^3/uL (0.04-0.36); Hematocrit 33.6 % (34.1-44.9); Hemoglobin 10.6 g/dL (11.2-15.7); IMMATURE GRAN # 0.16 x10^3u/L (0.001-0.031); IMMATURE GRAN % 1.9 % (0.001-0.429); Lymphocyte (Absolute #) 1.49 x10^3/uL (1.18-3.74); Lymphocytes % 17.4 % (19.3-51.7); Mean Cell Volume 99.7 fL (79.4-94.8); Mean Corpuscular Hemoglobin 31.5 pg (25.6-32.2); Mean Corpuscular Hgb Concent. 31.5 g/dL (32.2-35.5); Mean Platelet Volume 9.4 fL (9.4-12.3); Monocyte (Absolute #) 0.87 x10^3/uL (0.24-0.86); Monocytes % 10.2 % (4.7-12.5); Neutrophil % 61.9 % (34.0-71.1); Platelet Count 253 x10^3/uL (182-369); Red Blood Count 3.37 x10^6/uL (3.93-5.22); Red Cell Distribution Width 14.6 % (11.7-14.4); White Blood Count 8.6 x10^3/uL (3.98-10.04)
[2024-04-12 21:17] LABS: ALBUMIN 3.6 g/dL (3.5-5.0); ANION GAP 9.2 MEQ/L (5-15); BILIRUBIN,TOTAL 0.5 mg/dL (0.2-1.3); Calcium 9.4 mg/dL (8.4-10.2); Creatinine 1 1.03 mg/dL (0.52-1.04); EST GLOMERULAR FILTRATION RATE 63.4 ML/MIN; Potassium 4.1 mmol/L (3.5-5.1)
[2024-04-12] MEDS ORDERED: Rocephin 1000 MG INJ ONE (21:28)
[2024-04-12] MEDS ORDERED: XYLOCAINE 1% HCL 20 ML MDV ONE (21:30)
[2024-04-12] MEDS: Rocephin 1000 MG INJ IM ONE (21:33)
[2024-04-12 21:59] VITALS: O2SAT 93
[2024-04-12 22:03] VITALS: BP 136/65; PULSE 71; RESP 16
== END 2024-04-12 22:03 | disposition home or self-care (01) ==
LOC: ED 18:51
DX: I89.0 Lymphedema, not elsewhere classified (principal); L03.116 Cellulitis of left lower limb; L03.115 Cellulitis of right lower limb; E78.5 Hyperlipidemia, unspecified; I10 Essential (primary) hypertension; Z79.899 Other long term (current) drug therapy
CPT/HCPCS: 36415; 80053; 83605; 85025; 96372; 99283; 99291; J0696

== ENCOUNTER 2024-07-29 13:06 | Emergency (ER) | payer OTHER ==
[2024-07-29 13:26] VITALS: TEMP 99.5
--- NOTE | 2024-07-29 13:30 | ERPHSYRPT ---
- History of Present Illness Time Seen by Provider: 07/29/24 13:29 Source: patient Exam Limitations: no limitations Patient Subjective Stated Complaint: C/O fever and chills that started aroun 0900 today. States temperature at home was 102. She did not take any fever reduc ing medications today. Triage Nursing Assessment: Patient drove self to ER. Brought back to ER by W/C. She is alert and oriented. She is SOB with labored breathing; patient indicates this is normal for her. Edema present to BLE. Patient is pale. Skin is warm to touch. Temperature at this time is 99.5 orally. Physician History: This is a morbidly obese 59-year-old white female patient of Dr. Og who also sees Dr. Mendoza for cardiology issues and Dr. Han for her breast cancer/chemotherapy oncology issues. She presents to the emergency department by private vehicle with a complaint of fever and chills that began this morning. She did notice that she had muscle aches and pains yesterday evening. However she does have a history of fibromyalgia but the symptoms might have been worse than her typical fibromyalgia. At 9 AM today she noticed her fever was 102 F. She has had no nausea vomiting or diarrhea symptoms. She has had no cough. She denies chest pain and she denies abdominal pain. Her last dose of chemotherapy to treat her breast cancer was 3 weeks ago. Patient has no known exposures to anybody else with similar symptoms. She does have labored breathing with ambulation chronically. She also has chronic swelling of her lower limbs. Patient has a history of hyperlipidemia, hypertension, arthritis, fibromyalgia and depression. Timing/Duration: today Fever Severity: moderate Fever Therapy PLANE RUNNER: none Associated Symptoms: muscle aches, shortness of breath, weakness, No abdominal pain, No chest pain, No confusion, No cough (Chronically short of breath), No headache, No nausea/vomiting, No sore throat, No stiff neck Allergies/Adverse Reactions: codeine Allergy (Intermediate, Verified 07/29/24 13:12) tachycardia morphine Allergy (Intermediate, Verified 07/29/24 13:12) tachycardia nalbuphine HCl [From Nubain] Allergy (Intermediate, Verified 07/29/24 13:12) Rash oxycodone [Oxycodone] Allergy (Intermediate, Verified 07/29/24 13:12) tachycardia Home Medications: Potassium Chloride 10 meq PO DAILY 04/28/17 [History] Losartan Potassium 100 mg PO DAILY 04/04/20 [History] Meloxicam 7.5 mg PO DAILY 09/19/23 [History] Triamcinolone 0.1% Cream [Kenalog 0.1% Cream 15 gm] 15 gm TP DAILY 09/19/23 [History] Atorvastatin Calcium 20 mg PO DAILY 04/12/24 [History] Furosemide 40 mg [Lasix 40 MG] 60 mg PO BID 04/12/24 [History] Metoprolol Succinate 50 mg [Toprol Xl 50 MG] 50 mg PO DAILY 04/12/24 [History] Spironolactone 25 mg [Aldactone 25 MG] 50 mg PO DAILY 04/12/24 [History] Venlafaxine HCl 75 mg PO DAILY 04/12/24 [History] Cholecalciferol (Vitamin D3) [Vitamin D3] See Rx Instructions .ROUTE .COMPLEX 07/29/24 [History] Gabapentin [Neurontin ] 800 mg PO TID 07/29/24 [History] Hx Tetanus, Diphtheria Vaccination/Date Given: Yes Hx Influenza Vaccination/Date Given: No Hx Pneumococcal Vaccination/Date Given: No Immunizations Up to Date: Yes Travel Risk - International Travel Have you traveled outside of the country in past 3 weeks: No - Emerging Infectious Disease Are you exhibiting symptoms associated with any current EIDs: Yes Symptoms: Fever - Review of Systems Constitutional: Fever, Chills, Weakness Eyes: No Symptoms Ears, Nose, & Throat: No Symptoms Respiratory: Dyspnea Cardiac: No Chest Pain Abdominal/Gastrointestinal: No Symptoms, Appetite Changes Musculoskeletal: Arthralgias, Myalgias Skin: No Symptoms Neurological: No Symptoms Psychological: No Symptoms Endocrine: No Symptoms Hematologic/Lymphatic: No Symptoms Immunological/Allergic: No Symptoms All Other Systems: Reviewed and Negative - Past Medical History Pertinent Past Medical History: Yes Neurological History: Migraines, Peripheral Neuropathy ENT History: No Pertinent History Cardiac History: High Cholesterol, Hypertension Respiratory History: No Pertinent History Endocrine Medical History: No Pertinent History Musculoskeletal History: Fibromyalgia GI Medical History: Hernia, Gallbladder Disease, Colorectal Cancer History: No Pertinent History Psycho-Social History: Depression Female Reproductive Disorders: Breast Cancer Other Medical History: Ad Operations Specialist: Dr. Mendoza, Oncologist: Dr. Han. Currently receiving chemotherapy for left breast CA. - Past Surgical History Past Surgical History: Yes Neuro Surgical History: No Pertinent History Cardiac: No Pertinent History Respiratory: No Pertinent History Gastrointestinal: Colon Resection, Cholecystectomy, Hernia Repair Genitourinary: No Pertinent History Musculoskeletal: No Pertinent History Female Surgical History: Dilation & Curettage, Tubal Ligation, Lumpectomy, Other Other Surgical History: 2 - d and c's. port placement left chest and port removed. - Social History Smoking Status: Never smoker Exposure to second hand smoke: No Drug Use: none Patient Lives Alone: Yes - Social Determinants of Health Will the patient participate in the screening: Yes Do you worry about a steady place to live?: No Do you have any problems with any of the following?: No known problems In the past 12 months,have you had to go without utilities?: No Transportation Issues: No Has anyone in your support network made you feel unsafe?: No Have you or anyone in your house had to go without enough: No - Nursing Vital Signs Nursing Vital Signs: Initial Vital Signs Temperature 99.5 F 07/29/24 13:06 Pulse Rate 94 H 07/29/24 13:06 Respiratory Rate 30 H 07/29/24 13:06 Blood Pressure 110/61 07/29/24 13:06 O2 Sat by Pulse Oximetry 94 L 07/29/24 13:06 Pain Scale Pain Intensity 0 - Physical Exam General Appearance: mild distress, alert, anxiety, obese Eye Exam: PERRL/EOMI, eyes nml inspection ENT Exam: normal ENT inspection, no apparent trauma, hearing grossly normal, TMs normal Neck Exam: normal inspection, non-tender, supple, full range of motion, No stiff neck, No Brudzinski's sign, No meningismus Respiratory Exam: normal breath sounds, chest non-tender, lungs clear, no respiratory distress, no accessory muscle use, No respiratory distress Gastrointestinal/Abdominal Exam: soft, non tender, no distention, no mass, no guarding, no ecchymosis, no organomegaly, no pulsatile mass, normal bowel sounds Pelvic Exam: not done Rectal Exam: not done Extremity Exam: non-tender Neurologic Exam: alert, oriented x 3, cooperative, 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 tested, nml cerebellar function, nml station & gait, sensation nml Skin Exam: normal color, warm, dry Lymphatic: No adenopathy SpO2 Interpretation: borderline oxygenation SpO2: 94 O2 Delivery: Room Air - Course Nursing assessment & vital signs reviewed: Yes Ordered Tests: Active Orders 24 hr Category Date Time Status AMA [Release AMA] OM.NOW Care 07/29/24 18:00 Active IV Insertion STAT Care 07/29/24 13:30 Active CHEST 1 VIEW (PORTABLE) Stat Exams 07/29/24 13:30 Completed BLOOD CULTURE Stat Lab 07/29/24 13:45 Received CBC W DIFF Stat Lab 07/29/24 13:45 Completed CMP Stat Lab 07/29/24 13:45 Completed MAG [MAGNESIUM] Stat Lab 07/29/24 13:45 Completed MONO SCREEN Stat Lab 07/29/24 13:45 Completed NT PRO BNPII Stat Lab 07/29/24 13:45 Completed TROPONIN Q4H Lab 07/29/24 13:45 Completed TROPONIN Q4H Lab 07/29/24 21:15 Ordered UA W/RFX UR CULTURE Stat Lab 07/29/24 13:30 Ordered Medication Summary Generic Name Dose Route Start Last Admin Trade Name Freq PRN Reason Stop Dose Admin Heparin Sodium (Beef Lung) 500 units 07/29/24 18:02 07/29/24 18:04 Heparin Lock Flush Pf 500 Units/5 Ml Syringe PORT FLUSH 08/28/24 18:01 500 units PRN PRN Administration IV PORT FLUSH Sodium Chloride 1,000 mls @ 250 mls/hr 07/29/24 17:15 07/29/24 17:16 Sodium Chloride 0.9% 1000 Ml IV 08/28/24 17:14 250 mls/hr .Q4H EMILIANO Administration Discontinued Medications Generic Name Dose Route Start Last Admin Trade Name Freq PRN Reason Stop Dose Admin Acetaminophen 650 mg 07/29/24 15:32 07/29/24 15:35 Acetaminophen 325 Mg Tablet PO 07/29/24 15:33 650 mg STAT ONE Administration Acetaminophen Confirm 07/29/24 15:35 Acetaminophen 325 Mg Tablet Administered 07/29/24 15:36 Dose 650 mg .ROUTE .STK-MED ONE Sodium Chloride 1,000 mls @ 999 mls/hr 07/29/24 13:30 07/29/24 16:26 Sodium Chloride 0.9% 1000 Ml IV 07/29/24 14:30 Infused .Q1H1M STA Infusion Sodium Chloride Confirm 07/29/24 14:00 Sodium Chloride 0.9% 1000 Ml Administered 07/29/24 14:01 Dose 1,000 mls @ .ROUTE .[facility] ONE Lab/Rad Data: Laboratory Result Diagrams 07/29/24 13:45 07/29/24 13:45 Laboratory Results 07/29/24 07/29/24 07/29/24 Range/Units 13:45 13:45 13:45 WBC (3.98-10.04) x10^3/uL RBC (3.93-5.22) x10^6/uL Hgb (11.2-15.7) g/dL Hct (34.1-44.9) % MCV (79.4-94.8) fL MCH (25.6-32.2) pg MCHC (32.2-35.5) g/dL RDW (11.7-14.4) % Plt Count (182-369) x10^3/uL MPV (9.4-12.3) fL Gran % (34.0-71.1) % Immature Gran % (Auto) (0.001-0.429) % Nucleat RBC Rel Count (0.00-0.2) % Eos # (Auto) (0.04-0.36) x10^3/uL Immature Gran # (Auto) (0.001-0.031) x10^3u/L Absolute Lymphs (auto) (1.18-3.74) x10^3/uL Absolute Monos (auto) (0.24-0.86) x10^3/uL Absolute Nucleated RBC (0.00-0.012) x10^3u/L Lymphocytes % (19.3-51.7) % Monocytes % (4.7-12.5) % Eosinophils % (0.7-5.8) % Basophils % (0.1-1.2) % Absolute Granulocytes (1.56-6.13) x10^3/uL Basophils # (0.01-0.08) x10^3/uL Sodium (135-145) mmol/L Potassium (3.5-5.1) mmol/L Chloride (98-107) mmol/L Carbon Dioxide (22-30) mmol/L Anion Gap (5-15) MEQ/L BUN (7-17) mg/dL Creatinine (0.52-1.04) mg/dL Estimated GFR ML/MIN Glucose (74-106) mg/dL Calcium (8.4-10.2) mg/dL Magnesium 2.1 (1.6-2.3) mg/dL Total Bilirubin (0.2-1.3) mg/dL AST (14-36) U/L ALT (0-35) U/L Alkaline Phosphatase (38-126) U/L Troponin I < 0.012 (0.000-0.033) ng/mL NT-Pro-B Natriuret Pep (<300) pg/mL Serum Total Protein (6.3-8.2) g/dL Albumin (3.5-5.0) g/dL Monoscreen NEGATIVE (NEGATIVE) Influenza Type A Ag (NEGATIVE) Influenza Type B Ag (NEGATIVE) RSV (PCR) (NEGATIVE) SARS-CoV-2 (PCR) (NEGATIVE) Group A Strep Antibody (NEGATIVE) 07/29/24 07/29/24 07/29/24 Range/Units 13:45 13:45 13:35 WBC 12.2 H (3.98-10.04) x10^3/uL RBC 3.47 L (3.93-5.22) x10^6/uL Hgb 11.1 L (11.2-15.7) g/dL Hct 35.1 (34.1-44.9) % MCV 101.2 H (79.4-94.8) fL MCH 32.0 (25.6-32.2) pg MCHC 31.6 L (32.2-35.5) g/dL RDW 14.0 (11.7-14.4) % Plt Count 266 (182-369) x10^3/uL MPV 9.8 (9.4-12.3) fL Gran % 73.5 H (34.0-71.1) % Immature Gran % (Auto) 0.8 H (0.001-0.429) % Nucleat RBC Rel Count 0.0 (0.00-0.2) % Eos # (Auto) 0.39 H (0.04-0.36) x10^3/uL Immature Gran # (Auto) 0.10 H (0.001-0.031) x10^3u/L Absolute Lymphs (auto) 1.40 (1.18-3.74) x10^3/uL Absolute Monos (auto) 1.27 H (0.24-0.86) x10^3/uL Absolute Nucleated RBC 0.00 (0.00-0.012) x10^3u/L Lymphocytes % 11.4 L (19.3-51.7) % Monocytes % 10.4 (4.7-12.5) % Eosinophils % 3.2 (0.7-5.8) % Basophils % 0.7 (0.1-1.2) % Absolute Granulocytes 8.99 H (1.56-6.13) x10^3/uL Basophils # 0.09 H (0.01-0.08) x10^3/uL Sodium 135 (135-145) mmol/L Potassium 4.3 (3.5-5.1) mmol/L Chloride 100 (98-107) mmol/L Carbon Dioxide 28 (22-30) mmol/L Anion Gap 12.0 (5-15) MEQ/L BUN 13 (7-17) mg/dL Creatinine 1.11 H (0.52-1.04) mg/dL Estimated GFR 57.6 ML/MIN Glucose 118 H (74-106) mg/dL Calcium 8.9 (8.4-10.2) mg/dL Magnesium (1.6-2.3) mg/dL Total Bilirubin 1.10 (0.2-1.3) mg/dL AST 24 (14-36) U/L ALT 19 (0-35) U/L Alkaline Phosphatase 42 (38-126) U/L Troponin I (0.000-0.033) ng/mL NT-Pro-B Natriuret Pep 110 (<300) pg/mL Serum Total Protein 6.5 (6.3-8.2) g/dL Albumin 4.0 (3.5-5.0) g/dL Monoscreen (NEGATIVE) Influenza Type A Ag NEGATIVE (NEGATIVE) Influenza Type B Ag NEGATIVE (NEGATIVE) RSV (PCR) NEGATIVE (NEGATIVE) SARS-CoV-2 (PCR) NEGATIVE (NEGATIVE) Group A Strep Antibody (NEGATIVE) 07/29/24 Range/Units 13:35 WBC (3.98-10.04) x10^3/uL RBC (3.93-5.22) x10^6/uL Hgb (11.2-15.7) g/dL Hct (34.1-44.9) % MCV (79.4-94.8) fL MCH (25.6-32.2) pg MCHC (32.2-35.5) g/dL RDW (11.7-14.4) % Plt Count (182-369) x10^3/uL MPV (9.4-12.3) fL Gran % (34.0-71.1) % Immature Gran % (Auto) (0.001-0.429) % Nucleat RBC Rel Count (0.00-0.2) % Eos # (Auto) (0.04-0.36) x10^3/uL Immature Gran # (Auto) (0.001-0.031) x10^3u/L Absolute Lymphs (auto) (1.18-3.74) x10^3/uL Absolute Monos (auto) (0.24-0.86) x10^3/uL Absolute Nucleated RBC (0.00-0.012) x10^3u/L Lymphocytes % (19.3-51.7) % Monocytes % (4.7-12.5) % Eosinophils % (0.7-5.8) % Basophils % (0.1-1.2) % Absolute Granulocytes (1.56-6.13) x10^3/uL Basophils # (0.01-0.08) x10^3/uL Sodium (135-145) mmol/L Potassium (3.5-5.1) mmol/L Chloride (98-107) mmol/L Carbon Dioxide (22-30) mmol/L Anion Gap (5-15) MEQ/L BUN (7-17) mg/dL Creatinine (0.52-1.04) mg/dL Estimated GFR ML/MIN Glucose (74-106) mg/dL Calcium (8.4-10.2) mg/dL Magnesium (1.6-2.3) mg/dL Total Bilirubin (0.2-1.3) mg/dL AST (14-36) U/L ALT (0-35) U/L Alkaline Phosphatase (38-126) U/L Troponin I (0.000-0.033) ng/mL NT-Pro-B Natriuret Pep (<300) pg/mL Serum Total Protein (6.3-8.2) g/dL Albumin (3.5-5.0) g/dL Monoscreen (NEGATIVE) Influenza Type A Ag (NEGATIVE) Influenza Type B Ag (NEGATIVE) RSV (PCR) (NEGATIVE) SARS-CoV-2 (PCR) (NEGATIVE) Group A Strep Antibody NOT DETECTED (NEGATIVE) - Progress Progress: improved Progress Note: 07/29/24 14:33 My medical decision making and the assignment of this patient's medical issue today is of moderate complexity. Is based on review of the patient's past medical history, review the patient's medication list, review patient drug allergy list, history present illness and physical findings on examination. The workup in this patient includes placement of intravenous line, infusion of low rate saline solution, CBC, CMP, BNP, urinalysis, chest x-ray, viral swabs, monotest and group A strep test. We also obtain blood cultures. Differential diagnosis includes was not limited to pneumonia, urinary tract infection, viral illness 07/29/24 17:13 The chest x-ray was interpreted by the radiologist. There is no evidence of any acute cardiopulmonary process. I interpreted the patient's laboratory data results. The patient does have a leukocytosis. Her hemoglobin is 11. Her BNP is normal. Her GFR is 57. There is no other acute, emergent findings based on her laboratory data results. We will add a troponin and magnesium. We are still waiting for her to provide us with a urine specimen. 07/29/24 18:08 Patient's troponin level and magnesium are both normal. Patient does not have an acute ischemic issue on her EKG. Patient is still unable to void and does not want urinary bladder catheterization. She states that she wants to go home. Her systolic blood pressure has improved from 92 to 104 mmHg. She has no chest pain. She is not short of breath. She is aware that she might have a significant urinary tract infection that would go untreated if she does not provide us with a urine specimen. Patient understands. She understands that her condition may worsen and she may . She will sign the AGAINST MEDICAL ADVICE form. Counseled pt/family regarding: lab results, diagnosis, need for follow-up, rad results Medical Desision Making - Diagnostic Testing Diagnostic test were ordered, analyzed, and reviewed by me: Yes Radiological Interpretation: Reviewed by me, Teleradiologist Report - Risk of complications Low Risk: Low risk of morbidity from additional dx testing or treatment - Departure Departure Disposition: AMA Clinical Impression: Leukocytosis, Fever of unknown origin Condition: Stable Critical Care Time: No Referrals: SILVESTRE OG MD [Primary Care Provider] - Follow up/PCP as directed Additional Instructions: Drink plenty of clear liquids. If there are no contraindications, use Tylenol and ibuprofen to control your aches, pains and fever. If your condition worsens return to the emergency department. Call your primary care provider tomorrow, 07/30/2024 to make arrangements for follow-up appointment for further evaluation and management.
--- NOTE | 2024-07-29 13:54 | XRAY ---
Indication: Fever. Breast cancer. Comparison: October 01, 2022 Portable apical lordotic chest less inflated and remains clear. Heart not enlarged for AP portable technique with new right Port-A-Cath. Bony thorax intact again with mild degenerative changes.
[2024-07-29 14:00] LABS: Absolute Neutrophil Ct (ANC) 8.99 x10^3/uL (1.56-6.13); BASOPHIL % 0.7 % (0.1-1.2); Basophil (Absolute #) 0.09 x10^3/uL (0.01-0.08); Eosinophil % 3.2 % (0.7-5.8); Eosinophil (Absolute #) 0.39 x10^3/uL (0.04-0.36); Hematocrit 35.1 % (34.1-44.9); Hemoglobin 11.1 g/dL (11.2-15.7); IMMATURE GRAN % 0.8 % (0.001-0.429); Lymphocytes % 11.4 % (19.3-51.7); Mean Cell Volume 101.2 fL (79.4-94.8); Mean Corpuscular Hgb Concent. 31.6 g/dL (32.2-35.5); Mean Platelet Volume 9.8 fL (9.4-12.3); Monocyte (Absolute #) 1.27 x10^3/uL (0.24-0.86); Monocytes % 10.4 % (4.7-12.5); Neutrophil % 73.5 % (34.0-71.1); Platelet Count 266 x10^3/uL (182-369); Red Blood Count 3.47 x10^6/uL (3.93-5.22); White Blood Count 12.2 x10^3/uL (3.98-10.04)
[2024-07-29] MEDS ORDERED: Sodium Chloride 0.9% 1000 ML 1,000 ML ONE ×2 (14:00→17:16)
[2024-07-29] MEDS: Sodium Chloride 0.9% 1000 ML 1,000 ML IV STA (14:06)
[2024-07-29 14:13] LABS: BILIRUBIN,TOTAL 1.1 mg/dL (0.2-1.3); Calcium 8.9 mg/dL (8.4-10.2); Creatinine 1 1.11 mg/dL (0.52-1.04); EST GLOMERULAR FILTRATION RATE 57.6 ML/MIN; Potassium 4.3 mmol/L (3.5-5.1); Total Protein 6.5 g/dL (6.3-8.2)
[2024-07-29 14:36] LABS: INFLUENZA A NEGATIVE (NEGATIVE); INFLUENZA B NEGATIVE (NEGATIVE); RESPIRATORY SYNCTIAL VIRUS NEGATIVE (NEGATIVE); SARS-CoV-2 Xpert Express NEGATIVE (NEGATIVE)
[2024-07-29] MEDS: TYLENOL 325 MG PO ONE (15:35)
[2024-07-29] MEDS ORDERED: TYLENOL 325 MG ONE (15:35)
[2024-07-29] MEDS: Sodium Chloride 0.9% 1000 ML 1,000 ML IV SCH (17:16)
[2024-07-29 17:23] VITALS: RESP 26
[2024-07-29 18:02] VITALS: BP 97/66; PULSE 89; O2SAT 94
== END 2024-07-29 18:10 | disposition left against medical advice (07) ==
LOC: ED 13:06
DX: D72.829 Elevated white blood cell count, unspecified (principal); R50.9 Fever, unspecified; M79.10 Myalgia, unspecified site; E78.5 Hyperlipidemia, unspecified; I10 Essential (primary) hypertension; Z79.899 Other long term (current) drug therapy
CPT/HCPCS: 0241U; 36000; 36415; 71045; 80053; 83735; 83880; 84484; 85025; 86308; 87040; 87651; 96360; 99284; J1642; A9270-GY